=== PATIENT | female | born 1950 | race Caucasian/White ===

== ENCOUNTER 2020-09-13 12:39 | Emergency (ER) | payer MEDICARE, BC ==
--- NOTE | 2020-09-13 14:35 | CR ---
Left tibia and fibula: AP and lateral views of the left tibia and fibula were obtained. Comparison: Previous left ankle study of 06/04/13. Short intramedullary geno is noted within the distal fibula with single screw seen within the medial malleolus. Both of these findings affix old healed fractures. Two surgical clips are seen within the soft tissues. There is an acute fracture being seen within the lateral compartment of the left knee. Articular extension is seen with mild displacement. Impression: 1. Lateral tibial plateau fracture within the left knee with articular extension and mild displacement. 2. Old trauma within the ankle with orthopedic hardware. 3. Incidental soft tissue surgical clips. Diagnostic code #3 MTDD
--- NOTE | 2020-09-13 14:35 | EDM.PDOC ---
ED HPI GENERAL MEDICAL PROBLEM - General Chief Complaint: Lower Extremity Injury/Pain Stated Complaint: FALL/LT LEG INJURY Time Seen by Provider: 09/13/20 13:28 Source of Information: Reports: Patient, RN Notes Reviewed History Limitations: Reports: No Limitations - History of Present Illness INITIAL COMMENTS - FREE TEXT/NARRATIVE: Patient is a 69-year-old female presenting to the emergency part with complaints of pain to her left lateral lower leg, directly below the level of the knee. She reports that she missed the bottom step and fell. She has been having pain since that time. States that she heard something crack. Denies any pain in her knee or her ankle, but has had previous ankle surgery. She has not bared weight on the extremity since the time of the injury due to pain. She had a knee immobilizer at home which she applied to her tib-fib. States this did help with the pain. Left Lower Leg Pain Score (Numeric/FACES): 5 - Related Data Allergies Allergy/AdvReac Type Severity Reaction Status Date / Time No Known Allergies Allergy Verified 09/13/20 13:22 Home Meds: Home Meds Albuterol [Ventolin HFA] 90 mcg INH Q4H PRN 09/13/20 [History] Aspirin [Aspirin EC] 81 mg PO DAILY 09/13/20 [History] Calcium Carbonate [Calcium] 1,200 mg PO DAILY 09/13/20 [History] Cholecalciferol (Vitamin D3) [Vitamin D3] 2,000 units PO BID 09/13/20 [History] Chondroitin/Glucosamine [Glucosamine-Chondroitin] 1 tab PO BID 09/13/20 [History] Cinnamon Bark [Cinnamon] 1,000 mg PO BID 09/13/20 [History] Metoprolol Succinate 12.5 mg PO DAILY 09/13/20 [History] Nitroglycerin 0.4 mg SL ASDIRECTED PRN 09/13/20 [History] Omeprazole 20 mg PO DAILY PRN 09/13/20 [History] Ubidecarenone [Co Q-10] 400 mg PO DAILY 09/13/20 [History] Venlafaxine HCl [Venlafaxine ER] 37.5 mg PO DAILY 09/13/20 [History] atorvaSTATin [Lipitor] 40 mg PO DAILY 09/13/20 [History] traZODone HCl [Trazodone HCl] 50 mg PO BEDTIME 09/13/20 [History] Past Medical History Cardiovascular History: Reports: [place] - Past Surgical History Cardiovascular Surgical History: Reports: Other (See Below) Other Cardiovascular Surgeries/Procedures: bypass GI Surgical History: Reports: Appendectomy Musculoskeletal Surgical History: Reports: Other (See Below) Other Musculoskeletal Surgeries/Procedures:: ankle surgery Social & Family History - Tobacco Use Tobacco Use Status *Q: Never Tobacco User Second Hand Smoke Exposure: No - Recreational Drug Use Recreational Drug Use: No Review of Systems - Review of Systems Review Of Systems: Comprehensive ROS is negative, except as noted in HPI. ED EXAM, GENERAL - Physical Exam Exam: See Below Exam Limited By: No Limitations General Appearance: Alert, WD/WN, No Apparent Distress Respiratory/Chest: No Respiratory Distress, Lungs Clear, Normal Breath Sounds, No Accessory Muscle Use, Chest Non-Tender Cardiovascular: Normal Peripheral Pulses, Regular Rate, Rhythm, No Edema, No Gallop, No JVD, No Murmur, No Rub Extremities: Other (Superficial abrasion with soft tissue swelling to the lateral aspect of the left lower extremity directly below the level of the knee. No pain to palpation or range of motion of the knee or the ankle. No obvious deformity of the tib-fib. CMS intact distal to the injury.) Neurological: Alert, Oriented, CN II-XII Intact, Normal Cognition, Normal Gait, Normal Reflexes, No Motor/Sensory Deficits Psychiatric: Normal Affect, Normal Mood Course - Vital Signs Last Recorded V/S: Last Vital Signs Temp 99 F 09/13/20 13:19 Pulse 77 09/13/20 13:19 Resp 16 09/13/20 13:19 BP 184/88 H 09/13/20 13:19 Pulse Ox 98 09/13/20 13:19 - Orders/Labs/Meds Meds: Medications Discontinued Medications Generic Name Dose Route Start Last Admin Trade Name Freq PRN Reason Stop Dose Admin Acetaminophen 975 mg 09/13/20 14:41 09/13/20 14:56 Acetaminophen 325 Mg Tab PO 09/13/20 14:42 975 mg NOW ONE Administration - Re-Assessments/Exams Free Text/Narrative Re-Assessment/Exam: 09/13/20 1445 X-ray of the right tib-fib shows a lateral tibial plateau fracture within the left knee with articular extension and mild displacement. There is also old trauma within the ankle with orthopedic hardware. I have ordered a CT scan of the left knee. I will discussed the results with orthopedist, Dr. Hui once imaging is available. 09/13/20 16:34 Impression of the left knee CT as follows 1. Fracture within the proximal tibia which involves the articular margin. Slight wedging of the fracture line is seen with mild depression of the lateral tibial plateau. 2 degenerative degenerative changes noted above. 3. Joint effusion is seen. Dr. Hui recommend knee immobilizer and nonweightbearing. Follow-up with him in approximately 1 week in the clinic. Discussed this with the patient. She reports that she has a walker at home, therefore she will not need crutches. She will need assistance with a wheelchair to get into the car and then she can use her walker when she gets home. She did come with a knee immobilizer, therefore we will not need to provide her with one today. Recommended ice and elevation. Discussed follow-up with orthopedics and she verbalized understanding. I will provide an [facility] prescription for hydrocodone with Tylenol as needed for pain. Discharge instructions as documented. Departure - Departure Time of Disposition: 16:34 Disposition: Home, Self-Care 01 Condition: Good Clinical Impression: Tibial plateau fracture, left Qualifiers: Encounter type: initial encounter Fracture type: closed Qualified Code(s): S82.142A - Displaced bicondylar fracture of left tibia, initial encounter for closed fracture - Discharge Information *PRESCRIPTION DRUG MONITORING PROGRAM REVIEWED*: Yes *COPY OF PRESCRIPTION DRUG MONITORING REPORT IN PATIENT JOVANA: No Instructions: Tibial Plateau Fracture Rehab-SportsMed Referrals: Jerry Barnhart MD [Primary Care Provider] - Rj Hui MD [Physician] - Forms: ED Department Discharge Additional Instructions: You were seen in the emergency department today for pain to your left lower extremity after falling. X-rays and a CT scan were completed and do unfortunately show a tibial plateau fracture. Your case was discussed with orthopedics. He recommends a knee immobilizer and nonweightbearing on this extremity. He should follow-up with him in the clinic in 1 week. Use your walker and knee immobilizer at home anytime that you are up and moving. Do not put weight on that extremity. Recommend routine Tylenol and ibuprofen as well as ice and elevation for discomfort and swelling. For pain not relieved by this, you have been provided a prescription for hydrocodone with Tylenol. If you should experience any new or worsening symptoms, please do not hesitate to return to the emergency department for reevaluation. Sepsis Event Note (ED) - Evaluation Sepsis Screening Result: No Definite Risk
[2020-09-13] MEDS ORDERED: Acetaminophen 325 MG Tab PO ONE (14:41)
--- NOTE | 2020-09-13 16:30 | CT ---
CT left knee Technique: Multiple axial sections through the left knee were obtained. Reconstructed coronal and sagittal images were obtained. Comparison: Prior left tibia and fibula study performed earlier on the same day (2:05 PM). Findings: Proximal tibial fracture is seen through the knee with articular extension with slight comminution. Widening of the fracture line is seen by approximately 2.7 mm. Slight depression within the lateral tibial plateau is noted. Joint space narrowing is noted within the inner aspect of the lateral joint. Degenerative cyst is noted at the base of the intercondylar spines. Slight spurring is noted within the intercondylar notch of the distal femur. Joint effusion is present. Spurring is noted off the superior and inferior patella at the attachment of the patellar ligament and distal quadriceps tendon. Impression: 1. Fracture within the proximal tibia which involves the articular margin. Slight widening of the fracture line is seen with mild depression of the lateral tibial plateau. 2. Degenerative change as noted above. 3. Joint effusion is seen. Diagnostic code #3 MTDD
== END 2020-09-13 17:04 | disposition home or self-care (01) ==
LOC: JD.ED 12:39
DX: S82.142A Displaced bicondylar fracture of left tibia, initial encounter for closed fracture (principal); I25.2 Old myocardial infarction; Z79.82 Long term (current) use of aspirin; Z79.899 Other long term (current) drug therapy; Z95.1 Presence of aortocoronary bypass graft; W10.9XXA Fall (on) (from) unspecified stairs and steps, initial encounter
CPT/HCPCS: 73590; 73700; 99284; A9270